=== PATIENT | male | born 1970 | race Caucasian/White ===

== ENCOUNTER 2021-02-08 08:36 | Emergency (ER) | payer OTHER ==
[~2021-02-08] VITALS: Ht 177.8 cm; Wt 133.4 kg
[~2021-02-08 08:36] MED LIST: HYZAAR 100-12.1 EACH
[2021-02-08] MEDS ORDERED: AMLODIPINE BESYL5 MG PO (09:02)
[2021-02-08] MEDS ORDERED: FENOFIBRATE160 MG PO (09:03)
[2021-02-08] MEDS ORDERED: GABAPENTIN400 MG PO (09:03)
== END 2021-02-08 10:01 | disposition home or self-care (01) ==
LOC: ER 08:36
DX: S33.9XXA Sprain of unspecified parts of lumbar spine and pelvis, initial encounter (principal); X50.0XXA Overexertion from strenuous movement or load, initial encounter; Y93.89 Activity, other specified; Y92.89 Other specified places as the place of occurrence of the external cause; Y99.8 Other external cause status

== ENCOUNTER 2021-05-13 06:45 | Day surgery (SDC) | payer OTHER ==
[~2021-05-13 06:45] MED LIST changes: +AMLODIPINE BESYL5 MG PO; +FENOFIBRATE160 MG PO; +GABAPENTIN400 MG PO; +INVOKANA300 MG PO
[2021-05-13] MEDS ORDERED: PERCOCET 5-3251 EACH PO (13:07)
[2021-05-13] MEDS ORDERED: COLACE100 MG PO (13:08)
[2021-05-13] MEDS ORDERED: NEURONTIN600 M1 PO (13:08)
== END 2021-05-13 14:25 | disposition home or self-care (01) ==
LOC: CIR.AMB 06:45
PROVIDERS: ATTEND Surgery
DX: K42.0 Umbilical hernia with obstruction, without gangrene (principal); Z20.822 Contact with and (suspected) exposure to COVID-19